=== PATIENT | male | born 1990 | race Caucasian/White ===

== ENCOUNTER 2019-02-23 07:48 | Emergency (ER) | payer BC ==
--- NOTE | 2019-02-23 08:59 | EDM.PDOC ---
ED HPI GENERAL MEDICAL PROBLEM - General Chief Complaint: Chest Pain Stated Complaint: CHEST PAIN/SOB Time Seen by Provider: 02/23/19 08:20 Source of Information: Reports: Patient History Limitations: Reports: No Limitations - History of Present Illness INITIAL COMMENTS - FREE TEXT/NARRATIVE: [place] he started getting real tired about 5 hours ago pulled over got an energy drink started back down the road approximately 2 hours ago he pulled over and got a second energy drink and then about 15 minutes later started having left-sided chest pain got real flushed and short of breath drove here to the hospital. Patient states over the last week though he has been having little bit of cough and shortness of breath and feeling very tired seems like he has been struggling to get a deep breath and it hurts when he does take a deep breath on the left side. 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 [No Known Home Meds] 02/23/19 [History] Past Medical History - Past Health History Medical/Surgical History: Denies Medical/Surgical History ED ROS GENERAL - Review of Systems Review Of Systems: See Below Constitutional: Reports: No Symptoms, Diaphoresis. Denies: Fever, Chills HEENT: Reports: No Symptoms Respiratory: Reports: Shortness of Breath Cardiovascular: Reports: Chest Pain. Denies: Blood Pressure Problem, Dyspnea on Exertion, Lightheadedness Endocrine: Reports: No Symptoms GI/Abdominal: Reports: No Symptoms : Reports: No Symptoms Musculoskeletal: Reports: No Symptoms Skin: Reports: No Symptoms Neurological: Reports: No Symptoms Psychiatric: Reports: No Symptoms Hematologic/Lymphatic: Reports: No Symptoms Immunologic: Reports: No Symptoms ED EXAM, GENERAL - Physical Exam Exam: See Below Exam Limited By: No Limitations General Appearance: Alert, WD/WN, No Apparent Distress Eye Exam: Bilateral Eye: EOMI, PERRL Ears: Normal External Exam, Normal Canal, Hearing Grossly Normal, Normal TMs Nose: Normal Inspection, Normal Mucosa, No Blood Throat/Mouth: Normal Inspection, Normal Lips, Normal Teeth, Normal Gums, Normal Oropharynx, Normal Voice, No Airway Compromise Head: Atraumatic, Normocephalic Neck: Normal Inspection, Supple, Non-Tender, Full Range of Motion Respiratory/Chest: No Respiratory Distress, Lungs Clear, Normal Breath Sounds, No Accessory Muscle Use, Other (Positive tenderness palpation over the left lateral ribs with reproduction of the o'clock the pain per the patient). No: Chest Non-Tender Cardiovascular: Normal Peripheral Pulses, Regular Rate, Rhythm, No Edema, No Gallop, No JVD, No Murmur, No Rub GI/Abdominal: Normal Bowel Sounds, Soft, Non-Tender, No Organomegaly, No Distention, No Abnormal Bruit Extremities: Normal Inspection, Normal Range of Motion, Non-Tender, No Pedal Edema, Normal Capillary Refill Neurological: Alert, Oriented, CN II-XII Intact, Normal Cognition, Normal Gait, Normal Reflexes, No Motor/Sensory Deficits Psychiatric: Normal Affect, Normal Mood Skin Exam: Warm, Dry, Intact, Normal Color, No Rash Course - Vital Signs Text/Narrative:: EKG shows normal sinus rhythm patient is non-tachycardic O2 sat normal blood pressure normal patient has no symptoms of PE no risk factors for coronary artery disease Chest x-ray no acute process patient refuses blood work just wishes to get back on the road discussed risks versus benefit with the patient Last Recorded V/S: Last Vital Signs Temp 36.5 C 02/23/19 07:48 Pulse 60 02/23/19 07:48 Resp 12 02/23/19 07:48 BP 114/66 02/23/19 07:48 Pulse Ox 99 02/23/19 07:48 Departure - Departure Time of Disposition: 09:30 Disposition: Home, Self-Care 01 Condition: Good Clinical Impression: Non-cardiac chest pain - Discharge Information *PRESCRIPTION DRUG MONITORING PROGRAM REVIEWED*: No *COPY OF PRESCRIPTION DRUG MONITORING REPORT IN PATIENT CHARO: No Referrals: PCP,Not In Area [Primary Care Provider] - Forms: ED Department Discharge
--- NOTE | 2019-02-23 09:31 | CR ---
[id number] RAD/RAD Chest PA And Lateral EXAM: RAD Chest PA And Lateral INDICATION: SHORT OF BREATH. COMPARISON: None. DISCUSSION: Cardiomediastinal silhouette is normal in size and contour. No infiltrate, effusion, pneumothorax, or edema. IMPRESSION: Negative examination of the chest. Junior Stevenson MD 02/23/19 0930 Thank you for allowing us to participate in the care of your patient.
== END 2019-02-23 09:45 | disposition home or self-care (01) ==
LOC: VM.ED 07:48
DX: R07.89 Other chest pain (principal); Z88.0 Allergy status to penicillin
CPT/HCPCS: 71046; 93005; 99285-25